=== PATIENT | male | born 1970 | race Two or more races ===

== ENCOUNTER 2022-07-14 10:45 | Outpatient (CLI) | payer OTHER ==
[~2022-07-14 10:45] MED LIST: COZAAR25 MG
== END 2022-07-14 10:54 | disposition home or self-care (01) ==
LOC: RAD 10:45
PROVIDERS: ATTEND Internal Medicine
DX: J40 Bronchitis, not specified as acute or chronic (principal)

== ENCOUNTER 2024-03-10 10:15 | Emergency (ER) | payer OTHER ==
[~2024-03-10] VITALS: Ht 170.2 cm; Wt 85.3 kg
[2024-03-10] MEDS ORDERED: RAMIPRIL10 MG PO (10:53)
[2024-03-10] MEDS ORDERED: METOPROLOL SUC100 MG PO (10:53)
[2024-03-10] MEDS ORDERED: ROSUVASTATIN CAL5 MG PO (10:53)
[2024-03-10] MEDS ORDERED: MOUNJARO10 MG/0.5 SQ (10:53)
[2024-03-10 11:41] LABS: HEMATOCRIT 37.3 % (39.0-48.0); HEMOGLOBIN 12.7 g/dL (13-16.00); MEAN CELL VOLUME 84.5 fL (80.0-100.00); MEAN CORPUSCULAR HEMOGLOBIN 28.7 pg (27.00-32.0); PLATELET COUNT 198 K/uL (150-450); RED BLOOD COUNT 4.41 M/uL (4.00-6.00); RED CELL DISTRIBUTION WIDTH 16.5 % (11.5-14.5)
[2024-03-10 11:58] LABS: ERYTHROCYTE SEDIMENTATION RATE 79 mm/hr
[2024-03-10 12:01] LABS: INR 1.12; PARTIAL THROMBOPLASTIN TIME 26.5 SECONDS (22.0-34.0); PROTHROMBIN TIME 12.1 SECONDS (9.0-11.5)
[2024-03-10 12:06] LABS: ALBUMIN 3.1 gm/dL (3.4-5.0); BILIRUBIN TOTAL 0.33 mg/dL (0.3-1.2); CALCIUM 9.6 mg/dL (8.5-10.1); CREATININE SERUM 1.02 mg/dL (0.70-1.30); GFR 76.69; GLOBULINA 3.7 G/DL (2.4-3.5); POTASSIUM 3.73 mEq/L (3.5-5.1); TOTAL PROTEIN 6.8 gm/dL (6.4-8.2)
[2024-03-10 12:08] LABS: C-REACTIVE PROTEIN 12.2 MG/DL (0.00-0.29)
[2024-03-10 12:19] LABS: PH,URINE 5.5 (5.0-8.0); URINE APPEARANCE Clear; URINE BILIRRUBIN Negative (NEGATIVE); URINE BLOOD Small; URINE COLOR Yellow; URINE GLUCOSE Negative (NEGATIVE); URINE KETONE Trace (NEGATIVE); URINE LEUKOCYTE Small; URINE NITRATE Negative; URINE PROTEIN 30 (NEGATIVE); URINE UROBILINOGEN 0.2 E.U./dl
[2024-03-10 12:22] LABS: URINE EPITHELIAL CELLS 6.6 uL (0.0-38.8); URINE RBC 33.8 uL (0.0-20.8); URINE WBC 172.3 uL (0.0-23.2)
== END 2024-03-10 13:52 | disposition home or self-care (01) ==
LOC: ER 10:16
PROVIDERS: General Practice
DX: R42 Dizziness and giddiness (principal); I44.7 Left bundle-branch block, unspecified; I10 Essential (primary) hypertension; E11.9 Type 2 diabetes mellitus without complications
CPT/HCPCS: 36415; 70460; 71045; 93005; Q9965